=== PATIENT | male | born 1945 | race Caucasian/White ===

== ENCOUNTER 2018-10-09 16:23 | Inpatient (IN) | payer MEDICARE, OTHER ==
[~2018-10-09] VITALS: Ht 180.3 cm; Wt 97.2 kg
[2018-10-09] MEDS ORDERED: MECLIZINE CHEWABLE 25 MG TAB PO ONE (17:00)
[2018-10-09] MEDS ORDERED: ACETAMINOPHEN 500 MG TABLET PO ONE (17:00)
[2018-10-09] MEDS ORDERED: MECLIZINE CHEWABLE 25 MG TAB ONE (17:02)
[2018-10-09] MEDS ORDERED: ACETAMINOPHEN 500 MG TABLET ONE (17:03)
--- NOTE | 2018-10-09 17:08 | NUR ---
PT ON HEART MONITOR, BP CUFF, PULSE OX. VSS AT THIS TIME. CALL LIGHT WITHIN REACH, PT OFFERED WARM BLANKET. MEDS GIVEN PER ERP ORDER FOR DIZZINESS AND BROWN RATED 3/10.
[2018-10-09 17:19] LABS: BASOPHILS # (AUTO) 0.01 x10^3/uL (0-0.1); BASOPHILS % (AUTO) 0 % (0-1); EOSINOPHILS % (AUTO) 4 % (1-7); LYMPHOCYTES # (AUTO) 1.36 x10^3/uL (1-3.4); LYMPHOCYTES % (AUTO) 25 % (22-44); MD NO; MEAN CORPUSCULAR HEMOGLOBIN 29.2 pg (27.5-34.5); MEAN CORPUSCULAR HGB CONC 32.9 g/dL (33.2-36.2); MEAN CORPUSCULAR VOLUME 88.7 fL (81-97); MEAN PLATELET VOLUME 7.8 fL (7.4-10.4); MONOCYTES # (AUTO) 0.51 x10^3/uL (0.2-0.8); MONOCYTES % (AUTO) 9 % (2-9); NEUTROPHILS # (AUTO) 3.37 x10^3/uL (1.8-6.8); NEUTROPHILS % (AUTO) 62 % (42-75); PLATELET COUNT 195 x10^3/uL (130-400); RED BLOOD COUNT 4.32 x10^6/uL (4.38-5.82); RED CELL DISTRIBUTION WIDTH 14.1 % (9.4-14.8)
[2018-10-09 17:26] LABS: INTERNATIONAL NORMALIZED RATIO 2.85 (0.93-1.1); PROTHROMBIN TIME 28.7 Seconds (9.6-11.5)
[2018-10-09 17:32] LABS: ALBUMIN 3.5 g/dL (3.4-5.0); ANION GAP 6 mmol/L (5-15); CALCIUM 8.5 mg/dL (8.5-10.1); CHLORIDE 111 mmol/L (98-107); CREATININE 1.31 mg/dL (0.7-1.3)
[2018-10-09 17:36] LABS: TROPONIN I < 0.015 ng/mL (0.000-0.045)
--- NOTE | 2018-10-09 17:38 | NUR ---
PT TO CT.
--- NOTE | 2018-10-09 18:36 | NUR ---
VS UPDATED IN COMPUTER. PT STATES NO CHANGE IN DIZZINESS OR BROWN. PT GIVEN URINAL, UP AT BS WITHOUT INCREASED DIZZINESS. CALL LIGHT WITHIN REACH, WARM BLANKET PROVIDED ON REQUEST.
--- NOTE | 2018-10-09 19:00 | NUR ---
REPORT TO NALINI CHEN.
[2018-10-09] MEDS ORDERED: SIMV20TA3 PO (19:10)
[2018-10-09] MEDS ORDERED: CARV-39 PO (19:10)
[2018-10-09] MEDS ORDERED: WARF-36 PO (19:10)
[2018-10-09] MEDS ORDERED: AMLO-150 PO (19:10)
[2018-10-09] MEDS ORDERED: ESOM20CA PO (19:10)
[2018-10-09] MEDS ORDERED: CLON0.1T22 PO (19:10)
[2018-10-09] MEDS ORDERED: HYDR-3342 PO (19:10)
--- NOTE | 2018-10-09 19:11 | NUR ---
PT RESTING ON GURNEY,DENIES NEEDS, STATED " I STILL FEEL A BIT DIZZY AND I CAN'T READ THAT BIG WRITTING ON THE WALL". MONITORS IN PLACE, SIDERAILS UP X2, CALL LIGHT WITHIN REACH
[2018-10-09 20:26] VITALS: BP 154/89
[2018-10-09] MEDS ORDERED: DILTIAZEM 5 MG/ML, 5ML IVPush PRN (20:30)
[2018-10-09] MEDS ORDERED: hydrALAzine 20 MG/ML, 1ML IVPush PRN (20:30)
[2018-10-09] MEDS ORDERED: ACETAMINOPHEN 325 MG TABLET PO PRN (20:30)
[2018-10-09] MEDS ORDERED: ONDANSETRON 2MG/ML, 2ML IVPush PRN (20:30)
[2018-10-09 21:03] VITALS: BP 164/83
[2018-10-09] MEDS: AMLODIPINE 5 MG TABLET PO SCH (21:04)
[2018-10-09] MEDS: ASPIRIN 325 MG TABLET PO SCH (21:04)
[2018-10-09] MEDS: SIMVASTATIN 20 MG TABLET PO SCH (21:04)
[2018-10-09] MEDS: CARVEDILOL 25 MG TABLET PO SCH (21:05)
[2018-10-09 22:29] VITALS: BP 164/83
[2018-10-09 23:27] LABS: ALANINE AMINOTRANSFERASE 20 U/L (12-78); ALBUMIN 3.2 g/dL (3.4-5.0); IRON LEVEL 31 mcg/dL (65-175)
[2018-10-09 23:32] LABS: % IRON SATURATION 11 % (20-55); ALKALINE PHOSPHATASE 70 U/L (45-117); BILIRUBIN, DIRECT 0.2 mg/dL (0.1-0.2); BILIRUBIN,INDIRECT 0.7 mg/dL (0.0-2.0); BILIRUBIN,TOTAL 0.9 mg/dL (0.2-1.0); TOTAL IRON BINDING CAPACITY 273 mcg/dL (250-450); TOTAL PROTEIN 6.5 g/dL (6.4-8.2); TRANSFERRIN 166 mg/dL (200-360)
[2018-10-10 02:01] VITALS: BP 147/75
[2018-10-10] MEDS: ASPIRIN 325 MG TABLET PO SCH (05:16)
[2018-10-10 05:25] LABS: INTERNATIONAL NORMALIZED RATIO 3.23 (0.93-1.1); PROTHROMBIN TIME 32.4 Seconds (9.6-11.5)
[2018-10-10 05:31] LABS: ANION GAP 3 mmol/L (5-15); CALCIUM 8.3 mg/dL (8.5-10.1); CHLORIDE 110 mmol/L (98-107); CHOLESTEROL, TOTAL 123 mg/dL (140-239); CREATININE 1.23 mg/dL (0.7-1.3)
[2018-10-10 05:33] LABS: CHOL/HDL RATIO 3.6; HDL CHOL % 28 % (26-37); HDL CHOLESTEROL (DIRECT) 34 mg/dL (40-60); LDL CHOLESTEROL,CALCULATED 67 mg/dL (54-169); TRIGLYCERIDES 108 mg/dL (50-200); VLDL CHOLESTEROL 22 mg/dL (0-25)
[2018-10-10 05:34] LABS: TROPONIN I 0.023 ng/mL (0.000-0.045)
[2018-10-10 07:06] VITALS: BP 153/88
[2018-10-10] MEDS ORDERED: HOLD COUMADIN MC PRN (08:00)
[2018-10-10] MEDS: CARVEDILOL 25 MG TABLET PO SCH ×2 (08:29→21:00)
[2018-10-10] MEDS: PANTOPROZOLE 40MG TABLET PO SCH (08:29)
[2018-10-10] MEDS: POTASSIUM CHLORIDE 20 MEQ TAB.ER.PRT PO SCH ×2 (10:16→14:37)
[2018-10-10 12:12] VITALS: BP 133/83
[2018-10-10] MEDS ORDERED: LORazepam 2 MG/ML, 1ML IVPush ONE (13:30)
[2018-10-10] MEDS ORDERED: GADOBUTROL 10 MMOL/10 ML PFS ONE (16:20)
[2018-10-10 20:15] VITALS: BP 150/86
[2018-10-10 21:11] VITALS: BP 131/71
[2018-10-10] MEDS: SIMVASTATIN 20 MG TABLET PO SCH (21:14)
[2018-10-10] MEDS: AMLODIPINE 5 MG TABLET PO SCH (21:14)
[2018-10-11 03:20] VITALS: BP 152/81
[2018-10-11] MEDS: ASPIRIN 325 MG TABLET PO SCH (05:24)
[2018-10-11 05:37] LABS: INTERNATIONAL NORMALIZED RATIO 2.38 (0.93-1.1); PROTHROMBIN TIME 24.2 Seconds (9.6-11.5)
[2018-10-11 07:25] VITALS: BP 163/82
[2018-10-11 09:26] LABS: CHLORIDE 110 mmol/L (98-107)
[2018-10-11 09:30] LABS: ANION GAP 6 mmol/L (5-15); CALCIUM 8.5 mg/dL (8.5-10.1); CREATININE 1.12 mg/dL (0.7-1.3)
[2018-10-11] MEDS: CARVEDILOL 25 MG TABLET PO SCH (10:24)
[2018-10-11] MEDS: PANTOPROZOLE 40MG TABLET PO SCH (10:24)
[2018-10-11] MEDS ORDERED: MAGNESIUM HYDROXIDE 8%, 30ML UDC PO SCH (10:30)
[2018-10-11] MEDS ORDERED: BISACODYL 5 MG EC TABLET PO SCH (10:30)
[2018-10-11 12:21] VITALS: BP 144/85
[2018-10-11 12:25] VITALS: BP 144/85
[2018-10-11] MEDS ORDERED: AMLO-150 PO (14:28)
[2018-10-11] MEDS ORDERED: WARFARIN 5 MG TABLET PO-COUM ONE (18:00)
== END 2018-10-11 16:57 | disposition home or self-care (01) | DRG 69 ==
LOC: ED 17:08 → EDIP 19:22 → 5SO 20:23
PROVIDERS: ADMIT Family Medicine; ATTEND Family Medicine
DX: G45.9 Transient cerebral ischemic attack, unspecified (principal); N17.9 Acute kidney failure, unspecified; D68.69 Other thrombophilia; I47.1 Supraventricular tachycardia; H53.9 Unspecified visual disturbance; I48.91 Unspecified atrial fibrillation; I10 Essential (primary) hypertension; D64.9 Anemia, unspecified; G62.9 Polyneuropathy, unspecified; I44.7 Left bundle-branch block, unspecified; J01.90 Acute sinusitis, unspecified; G43.909 Migraine, unspecified, not intractable, without status migrainosus; E78.00 Pure hypercholesterolemia, unspecified; J44.9 Chronic obstructive pulmonary disease, unspecified; Z79.01 Long term (current) use of anticoagulants; Z79.899 Other long term (current) drug therapy; Z86.73 Personal history of transient ischemic attack (TIA), and cerebral infarction without residual deficits; Z86.79 Personal history of other diseases of the circulatory system; Z96.653 Presence of artificial knee joint, bilateral
CPT/HCPCS: 36415; 70450; 70553; 71046; 80048; 80061; 80076; 82040; 82728; 83540; 83550; 83735; 84100; 84443; 84466; 84484; 85025; 85610; 93005; 93306; 99285; A9585; G0378; J2060